=== PATIENT | male | born 1980 | race Caucasian/White ===

== ENCOUNTER 2018-10-27 21:18 | Emergency (ER) | payer OTHER ==
[2018-10-27 21:38] VITALS: BP 102/64; PULSE 53; TEMP 98.1; BMI 26.4
[2018-10-27] MEDS ORDERED: FAMOTIDINE 20 MG/50 ML IVPB 20 MG/50 ML MG IVPB ONE ×2 (21:49→22:07)
[2018-10-27] MEDS ORDERED: SODIUM CHLORIDE 1,000 ML IV STA (21:49)
[2018-10-27] MEDS ORDERED: ACETAMINOPHEN 1000 MG/100 ML VIAL (NON FORMULARY) IVPB ONE (21:49)
[2018-10-27] MEDS ORDERED: ONDANSETRON 4 MG/2 ML VIAL IVPUSH ONE (21:49)
--- NOTE | 2018-10-27 22:06 | PDOC ---
Documentation entered by Berto Cordova SCRIBE, acting as scribe for Bettye Cobos MD. Bettye Cobos MD: This documentation has been prepared by the Art maldonado Elijah, SCRIBE, under my direction and personally reviewed by me in its entirety. I confirm that the documentation accurately reflects all work, treatment, procedures, and medical decision making performed by me. History of Present Illness - General Chief Complaint: Pain Stated Complaint: ABD PAIN History Source: Patient Exam Limitations: No Limitations - History of Present Illness Initial Comments: 10/27/18 21:48 Patient is a 38 year old male with a significant past medical history hemorrhoids, constipation and anxiety who presents to the ED after x3 days of not eating and generalized abdominal pain. Patient reports that he has been waiting to be prescribed medication which has kept him from eating, limiting him to coconut water and slices of bread. Patient associates diarrhea which he reports as "watery and dark," unsure if there is blood and occurs in the afternoon and night. Patient has been previously seen by the [facility] for abdominal pain which has been chronic x "months" and his anxiety. Patient notes he has not taken his oxycodone in x3 weeks, but uses xanax as needed. Denies fever, chills, chest pain, SOB, palpitation, dizziness, weakness, Vomiting, bladder problems, leg swelling, No sick contacts or travel. no food triggers. Allergies: Amoxicillin Social history: Unemployed, Recently stopped Tobacco Use, No ETOH; denies illicit drug use. Surgical history: none Meds: Omeprazole 200 mg, Oxycodone, Xanax PMD: [employer] Tylor Weeks 10/27/18 22:03 10/27/18 22:09 10/27/18 22:09 Past History - Past Medical History Allergies/Adverse Reactions: Allergies Allergy/AdvReac Type Severity Reaction Status Date / Time amoxicillin [Amoxicillin] Allergy Verified 11/18/11 20:37 Home Medications: Ambulatory Orders Ondansetron [Zofran Odt -] 4 mg SL TID PRN #9 od.tablet 10/27/18 - Suicide/Smoking/Psychosocial Hx Smoking Status: No Smoking History: Current some day smoker Number of Cigarettes Smoked Daily: 0 Cigars Per Day: 0 Review of Systems - Review of Systems Comments:: 10/27/18 22:00 Constitutional: no fevers or chills. HEENT: no headache or dizziness. No congestion. No visual/hearing disturbances. CVS: no cp or syncope. Resp: no sob. No cough. Gastrointestinal: +abdominal pain +Diarrhea, No nausea or vomiting. Genitourinary: no urinary sx, hematuria. no urgency or frequency. MUSCULOSKELETAL: No joint pain and swelling. No neck or back pain. SKIN: no redness or skin changes, no discharge, no rash. No wounds. Hematologic: no easy bruising/bleeding. NEUROLOGIC: No headache, dizziness, LOC or altered mental status. No weakness, numbness or tingling. Psych: +anxiety Allergic/Immunologic: no allergies All other systems reviewed and negative, or as documented in HPI. 10/27/18 22:04 *Physical Exam - Vital Signs Last Vital Signs Temp Pulse Resp BP Pulse Ox 98.1 F 53 L 15 102/64 98 10/27/18 21:21 10/27/18 21:21 10/27/18 21:21 10/27/18 21:21 10/27/18 21:21 - Physical Exam Comments: 10/27/18 22:01 General: Well appearing, awake and alert, NAD. HEENT: NCAT, PERRL, EOMI, clear conjunctiva, anicteric, moist mucus membranes, clear oropharynx, no oral lesions.. Neck: neck supple, FROM Resp: CTAB, normal and even respirations, no respiratory distress CVS: RRR, no murmurs, 2+ peripheral pulses throughout, no peripheral edema Abdomen: soft, NTND, no peritoneal signs. no CVAT. Back: nontender, normal inspection and ROM MSK: no edema, SAMANIEGO x4, ROM intact. No clubbing or cyanosis. normal bulk and tone. Neuro: alert, no focal neuro deficits. Psych: calm and cooperative Skin: warm and well perfused, cap refill <2 sec, normal color 10/27/18 22:04 ED Treatment Course - LABORATORY CBC & Chemistry Diagram: 10/27/18 22:05 10/27/18 22:05 Medical Decision Making - Medical Decision Making 10/27/18 22:04 See HPI for details. Prior notes reviewed, including admissions, discharges and consultations. Vital signs reviewed, wnl. no systemic findings. no infectious sx. DDx abdominal pain: Renal colic, biliary colic, metabolic/electrolyte derangements. GERD, PUD, esophageal spasm, pancreatitis, hepatitis, constipation , colitis, gastroenteritis, cholecystitis, UTI, pyelonephritis, medication side effect, hernia, no abdominal pain so doubt appendicitis, diverticulitis making BM, so doubt obstruction no murphys or mcburney's point tenderness laboratory results and imaging reviewed, basic labs and lytes wnl, LFTs wnl ED course -interventions: IVF, zofran, GI cocktail, reassess 10/27/18 22:05 comfortable in bed, standing in room, using his phone. abdomen benign, no peritoneal findings no systemic findings rx zofran prn for nausea, to help with intake supportive care and GI /PMD referral/followup provided. Pt to be discharged in stable condition. Patient made aware of clinical impression, treatment recommendations and disposition plan, return precautions discussed (including but not limited to new or persistent/worsening symptoms, pain, fevers, or signs of infection, chest pain, respiratory distress, inability to tolerate oral intake, dehydration, syncope, or neurologic changes) . Follow up with PMD and/or GI specialist as recommended, follow up information provided, take medications as instructed for duration of time. continue with supportive care, avoid triggers and precipitants. All questions answered to patient's satisfaction and expressed understanding and comfort with this. At the time of discharge, the patient is alert, clinically improved, tolerating po and verbalizes understanding of instructions, satisfied with the care received and felt comfortable with the plan. Patient does not suffer from an acute life- threatening medical condition at this time and is safe for outpatient follow- up. 10/27/18 22:53 *DC/Admit/Observation/Transfer Diagnosis at time of Disposition: Abdominal pain - Discharge Dispostion Disposition: HOME Condition at time of disposition: Improved Decision to Admit order: No - Prescriptions Prescriptions: Ondansetron [Zofran Odt -] 4 mg SL TID PRN #9 od.tablet PRN Reason: Nausea - Referrals Referrals: [facility] [place] [Provider Group] [facility] [Provider Group] Manuel Lind MD [Staff Physician] - Geovanni Gordillo MD [Staff Physician] - Arturo Salgado DO [Staff Physician] - - Patient Instructions Printed Discharge Instructions: DI for Abdominal Pain-Adult Additional Instructions: 1) Please follow-up with your primary care doctor in the next 1-2 days. Please call tomorrow for for any urgent issues. 2) You were given a copy of the tests performed today. Please bring the results with you and review them with your primary care doctor. Your laboratory / results were normal, including your liver function testing. 3) If you have any worsening of symptoms or any other concerns please return to the ED immediately. Return if worsening symptoms including fevers, headache, vomiting, visual or hearing disturbances, abdominal pain, chest pain, shortness of breath, syncope, dehydration, inability to take things by mouth/vomiting, altered mental status, or worsening concerning symptoms. 4) Please continue taking your home medications as directed. your medications on discharge include zofran every 8 hours as needed for nausea and vomiting, this can help you eat . side effects may include upset stomach, abdominal pain, vomiting, or diarrhea. do not drink alcohol with your medications. Stay well hydrated and rest adequately. Make an appointment. If you cannot follow-up with your primary care doctor please return to the ED please follow up with your [employer] Loretta for your medications. - Post Discharge Activity
[2018-10-27] MEDS ORDERED: ONDANSETRON 4 MG/2 ML VIAL ONE (22:07)
[2018-10-27] MEDS ORDERED: ACETAMINOPHEN INJECTION 100 ML IVPB ONE (22:07)
[2018-10-27 22:17] LABS: BASO % 0.5 % (0-2.0); EOS % 1.6 % (0-4.5); HEMATOCRIT 41.7 % (35.4-49); HEMOGLOBIN 13.9 GM/dl (11.7-16.9); LYMPH % 40.2 % (8-40); MCH 31.8 pg (25.7-33.7); MCHC 33.4 g/dl (32.0-35.9); MEAN CELL VOLUME 95.1 fl (80-96); MEAN PLT VOLUME 7.9 fl (7.5-11.1); MONO % 8.6 % (3.8-10.2); NEUT % 49.1 % (42.8-82.8); PLATELET COUNT 178 K/MM3 (134-434); RBC 4.38 M/mm3 (4.00-5.60); RDW 11.9 % (11.9-15.9)
[2018-10-27 22:49] LABS: ALBUMIN 4.3 g/dl (3.4-5.0); BILIRUBIN,TOTAL 0.8 mg/dl (0.2-1); CALCIUM 9.4 mg/dl (8.5-10); CREATININE 0.9 mg/dl (0.55-1.3); POTASSIUM 4.2 mmol/L (3.5-5.1); TOT PROT 6.9 g/dl (6.4-8.2)
== END 2018-10-27 23:14 | disposition home or self-care (01) ==
LOC: FER 21:18
PROC: 3E033NZ Introduction of Analgesics, Hypnotics, Sedatives into Peripheral Vein, Percutaneous Approach (ICD-10-PCS; principal; 2018-10-27)
PROC: 3E033GC Introduction of Other Therapeutic Substance into Peripheral Vein, Percutaneous Approach (ICD-10-PCS; 2018-10-27)
PROC: 3E0337Z Introduction of Electrolytic and Water Balance Substance into Peripheral Vein, Percutaneous Approach (ICD-10-PCS; 2018-10-27)
DX: R10.9 Unspecified abdominal pain (principal)
CPT/HCPCS: 36415; 80053; 85025; 99283-25; J0131; J7030

== ENCOUNTER 2018-12-15 05:03 | Emergency (ER) | payer OTHER ==
[2018-12-15 05:10] VITALS: BP 111/79; PULSE 81; TEMP 97.7; BMI 22.3
--- NOTE | 2018-12-15 05:14 | PDOC ---
History of Present Illness - General Chief Complaint: Head/Neck problem Stated Complaint: LEFT ARM NUMBNESS, UNABLE TO SLEEP Time Seen by Provider: 12/15/18 05:14 History Source: Patient Exam Limitations: No Limitations - History of Present Illness Initial Comments: 12/15/18 05:21 This is a 38-year-old male with history of anxiety and insomnia who comes in because he is having difficulty sleeping this morning. Patient also including having some intermittent left arm numbness he was concerned that he could have cardiac problems. Patient otherwise is healthy takes no medication and her doctor today and had a workup including EKG and blood work all of which were normal except. Patient says he has a muscle relaxer for his insomnia but doesn' t take it because it is. Patient otherwise does not see a therapist for his seasonal past and has been diagnosed with anxiety. Allergies: as per nursing notes Past Medical History: none Social history: Lives with family. No smoking. No alcohol. No illicit drugs. Surgical history: None General: No fevers or chills, no weakness, no weight loss HEENT: No change in vision. No sore throat,. No ear pain CardioVascular: no chest discomfort. No shortness of breath Respiratory:No cough, or wheezing. Gastrointestinal: no nausea, vomiting, diarrhea or constipation, No rectal bleeding Genitourinary: No dysuria, hematuria, or frequency Musculoskeletal: No joint or muscle pain or swelling Neurologic: No headache, vertigo, dizziness or loss of consciousness Psychiatric: nor depression +anxiety and insomnia Skin: No rashes or easy bruising Endocrine: no increased thirst or abnormal weight change Allergic: no skin or latex allergy All other systems reviewed and normal GENERAL: The patient is awake, alert, and fully oriented, in no acute distress. HEAD: Normal with no signs of trauma. NECK there is no tenderness on palpation of the midline however there is some spasm and discomfort on palpation left lateral neck and shoulder area. Neurovascular distal is intact. EYES: Pupils equal, round and reactive to light, extraocular movements intact, sclera anicteric, conjunctiva clear. EXTREMITIES:atraumatic, Normal range of motion, no edema. NEUROLOGICAL: Normal speech, normal gait. PSYCH: Normal mood, normal affect. SKIN: Warm, Dry, normal turgor, no rashes or lesions noted. Assessment and plan: This is a 38-year-old male with insomnia and anxiety who came in for evaluation. Patient had seen his primary care doctor yesterday and had a complete evaluation including blood work. Patient was going to go see his therapist regarding his insomnia so patient was reassured and [id number] Past History - Past Medical History Allergies/Adverse Reactions: Allergies Allergy/AdvReac Type Severity Reaction Status Date / Time amoxicillin [Amoxicillin] Allergy Verified 12/15/18 05:11 Home Medications: Ambulatory Orders NK [No Known Home Medication] 12/15/18 COPD: No Other medical history: Sleep disorder - Suicide/Smoking/Psychosocial Hx Smoking Status: No Smoking History: Former smoker Have you smoked in the past 12 months: Yes Number of Cigarettes Smoked Daily: 0 If you are a former smoker, when did you quit?: 3 wks ago Cigars Per Day: 0 Information on smoking cessation initiated: No Hx Alcohol Use: No Drug/Substance Use Hx: No *Physical Exam - Vital Signs Last Vital Signs Temp Pulse Resp BP Pulse Ox 97.7 F 81 18 111/79 96 12/15/18 05:05 12/15/18 05:05 12/15/18 05:05 12/15/18 05:05 12/15/18 05:05 *DC/Admit/Observation/Transfer Diagnosis at time of Disposition: Insomnia Qualifiers: Insomnia type: unspecified Qualified Code(s): G47.00 - Insomnia, unspecified - Discharge Dispostion Disposition: HOME Condition at time of disposition: Good Decision to Admit order: No - Referrals - Patient Instructions Additional Instructions: It is important to follow up with a therapist if he continues to have difficulty sleeping and a lot of anxiety keep him awake.. Return to the emergency department immediately with ANY new, persistent or worsening symptoms. Continue any medications as previously prescribed by your physician. You should follow up with your primary doctor as soon as possible regarding today's emergency department visit. . Please make sure your doctor reviews the results of your emergency evaluation. Thank you for coming to the Emergency Department today for your care. It was a pleasure to see you today. Please note that your evaluation is INCOMPLETE until you follow-up with your doctor. - Post Discharge Activity
== END 2018-12-15 05:25 | disposition home or self-care (01) ==
LOC: FER 05:03
DX: G47.00 Insomnia, unspecified (principal); Z87.891 Personal history of nicotine dependence; F41.9 Anxiety disorder, unspecified
CPT/HCPCS: 99283-25

== ENCOUNTER 2020-11-29 11:49 | Emergency (ER) | payer BC, OTHER ==
[2020-11-29 12:02] VITALS: BMI 24.3
[2020-11-29] MEDS ORDERED: ACETAMINOPHEN 500 MG TABLET (FP) PO ONE (12:48)
[2020-11-29] MEDS ORDERED: ACETAMINOPHEN 325 MG TABLET (FP) ONE (13:03)
[2020-11-29 13:17] LABS: BASO % 1.1 % (0-2.0); EOS % 4.8 % (0-4.5); HEMATOCRIT 38.8 % (35.4-49); HEMOGLOBIN 12.6 GM/dl (11.7-16.9); LYMPH % 20.8 % (8-40); MCH 30.6 pg (25.7-33.7); MCHC 32.5 g/dl (32.0-35.9); MEAN CELL VOLUME 94.2 fl (80-96); MONO % 7.6 % (3.8-10.2); NEUT % 65.7 % (42.8-82.8); PLATELET COUNT 214 10^3/uL (134-434); RBC 4.12 M/mm3 (4.00-5.60); RDW 13.1 % (11.9-15.9); WHITE BLOOD COUNT 9.4 K/mm3 (4.0-10.8)
[2020-11-29 13:28] LABS: ALBUMIN 3.9 g/dl (3.4-5.0); ALK PHOS 56 U/L (45-117); ANION GAP 9 MMOL/L (8-16); BILIRUBIN,TOTAL 0.5 mg/dl (0.2-1); CHLORIDE 100 mmol/L (98-107); CO2 29 mmol/L (21-32); CREATININE 0.8 mg/dl (0.55-1.3); GLUCOSE,RANDOM 97 mg/dl (74-106); SGOT/AST 18 U/L (15-37); SGPT/ALT 28 U/L (13-61); SODIUM 138 mmol/L (136-145); TOT PROT 6.6 g/dl (6.4-8.2)
[2020-11-29 15:11] VITALS: BP 110/62; PULSE 70; TEMP 98.2
== END 2020-11-29 15:40 | disposition home or self-care (01) ==
LOC: FER 11:49
DX: H57.89 Other specified disorders of eye and adnexa (principal); W19.XXXA Unspecified fall, initial encounter
CPT/HCPCS: 36415; 70450-TC; 70486-TC; 72125-TC; 72128-TC; 72131-TC; 80053; 82550; 84484; 85025; 93005; 99285-25

== ENCOUNTER 2021-07-29 09:40 | Emergency (ER) | payer OTHER ==
[2021-07-29 10:01] VITALS: BP 105/67; PULSE 76; TEMP 98.2; BMI 24.3
[2021-07-29] MEDS ORDERED: SODIUM CHLORIDE 0.9% 500 ML INFUS.BAG IV ONE (10:26)
[2021-07-29] MEDS ORDERED: ONDANSETRON 4 MG/2 ML VIAL IVPB ONE (10:26)
[2021-07-29] MEDS ORDERED: MAG HYDROX/AL HYDROX/SIMETH -MYLANTA- ORAL SUSPENSION PO ONE (10:26)
[2021-07-29] MEDS ORDERED: FAMOTIDINE 20 MG/50 ML IVPB 20 MG in PREMIX 50 IVPB ONE (10:26)
[2021-07-29] MEDS ORDERED: ONDANSETRON 4 MG/2 ML VIAL ONE (10:50)
[2021-07-29] MEDS ORDERED: FAMOTIDINE 20 MG/50 ML IVPB 20 MG/50 ML MG IVPB ONE (10:50)
[2021-07-29] MEDS ORDERED: MAG HYDROX/AL HYDROX/SIMETH 30 ML UNIT-DOSE CUP ONE (10:50)
[2021-07-29 11:44] LABS: HEMATOCRIT 43.5 % (35.4-49); HEMOGLOBIN 15.1 G/dL (11.7-16.9); MCH 32.1 pg (25.7-33.7); MCHC 34.6 g/dl (32.0-35.9); MEAN CELL VOLUME 92.6 fl (80-96); MEAN PLT VOLUME 7.2 fl (7.5-11.1); RDW 14.7 % (11.9-15.9); WHITE BLOOD COUNT 8.3 10^3/uL (4.0-10.8)
[2021-07-29 12:23] LABS: ALBUMIN 3.9 g/dl (3.4-5.0); BILIRUBIN,TOTAL 0.7 mg/dl (0.2-1); CALCIUM 9.5 mg/dl (8.5-10); CREATININE 0.6 mg/dl (0.55-1.3); MAGNESIUM 1.9 mg/dL (1.8-2.4); PHOSPHOROUS 3.9 mg/dl (2.5-4.9)
[2021-07-29 13:02] LABS: VENOUS BASE EXCESS -1.2 mmol/L (-2-2); VENOUS PCO2 41.5 mmHg (38-52); VENOUS PH 7.379 (7.310-7.410)
[2021-07-29 13:15] LABS: ANISOCYTOSIS RARE
[2021-07-29 13:18] LABS: PLATELET ESTIMATE ADEQUATE
== END 2021-07-29 13:50 | disposition home or self-care (01) ==
LOC: FER 09:40
PROC: 3E033GC Introduction of Other Therapeutic Substance into Peripheral Vein, Percutaneous Approach (ICD-10-PCS; principal; 2021-07-29)
DX: R25.1 Tremor, unspecified (principal); R10.13 Epigastric pain; R11.2 Nausea with vomiting, unspecified
CPT/HCPCS: 36415; 71045-TC-FY; 80053; 80307; 81003; 81015; 82550; 82803; 83605; 83690; 83735; 84100; 85027; 93005; 99285-25

== ENCOUNTER 2021-10-27 07:48 | Emergency (ER) | payer OTHER ==
[2021-10-27 08:03] VITALS: TEMP 98.4; BMI 29.5
[2021-10-27] MEDS ORDERED: ONDANSETRON 4 MG/2 ML VIAL IVPUSH ONE (08:30)
[2021-10-27] MEDS ORDERED: SODIUM CHLORIDE 0.9% 500 ML INFUS.BAG IV ONE (08:30)
[2021-10-27] MEDS ORDERED: KETOROLAC TROMETHAMINE 15 MG/ML VIAL IVPUSH ONE (08:31)
[2021-10-27] MEDS ORDERED: KETOROLAC TROMETHAMINE 15 MG/ML VIAL ONE (08:34)
[2021-10-27] MEDS ORDERED: ONDANSETRON 4 MG/2 ML VIAL ONE (08:34)
[2021-10-27 08:52] LABS: HEMATOCRIT 47.7 % (35.4-49); HEMOGLOBIN 16.2 G/dL (11.7-16.9); MCH 32.4 pg (25.7-33.7); MCHC 33.9 g/dl (32.0-35.9); MEAN CELL VOLUME 95.5 fl (80-96); MEAN PLT VOLUME 7.2 fl (7.5-11.1); PLATELET COUNT 290.2 10^3/uL (134-434); RBC 4.99 10^6/uL (4.00-5.60); RDW 14.7 % (11.9-15.9)
[2021-10-27 09:02] LABS: PLATELET ESTIMATE ADEQUATE
[2021-10-27 09:14] LABS: ALBUMIN 3.9 g/dl (3.4-5.0); BILIRUBIN,TOTAL 0.9 mg/dl (0.2-1); CALCIUM 9.2 mg/dl (8.5-10); CREATININE 0.9 mg/dl (0.55-1.3); TOT PROT 7.3 g/dl (6.4-8.2)
[2021-10-27] MEDS ORDERED: METOCLOPRAMIDE HCL INJECTION 10 MG/2 ML VIAL IVPUSH ONE (09:27)
[2021-10-27] MEDS ORDERED: METOCLOPRAMIDE HCL INJECTION 10 MG/2 ML VIAL ONE (09:29)
[2021-10-27] MEDS ORDERED: BUPRENORPHINE/NALOXONE 2 MG/0.5 MG FILM PACKET SL ONE (10:48)
[2021-10-27 11:42] VITALS: BP 90/53; PULSE 57
== END 2021-10-27 11:54 | disposition home or self-care (01) ==
LOC: FER 07:48
PROC: 3E033NZ Introduction of Analgesics, Hypnotics, Sedatives into Peripheral Vein, Percutaneous Approach (ICD-10-PCS; principal; 2021-10-27)
PROC: 3E0333Z Introduction of Anti-inflammatory into Peripheral Vein, Percutaneous Approach (ICD-10-PCS; 2021-10-27)
PROC: 3E033GC Introduction of Other Therapeutic Substance into Peripheral Vein, Percutaneous Approach (ICD-10-PCS; 2021-10-27)
DX: R11.2 Nausea with vomiting, unspecified (principal)
CPT/HCPCS: 36415; 74176-TC; 80053; 85025; 96374; 96375; 99285-25